=== PATIENT | female | born 1995 | race Caucasian/White ===

== ENCOUNTER 2016-06-12 22:12 | Emergency (ER) | payer OTHER ==
[2016-06-13 01:03] LABS: BASOPHIL % 0.1 % (0-2); PLATELET COUNT 232 x10^3mcL (130-400); RED CELL DISTRIBUTION WIDTH 13.9 % (11.5-14.5)
[2016-06-13 01:17] LABS: CALCIUM 8.8 mg/dL (8.5-10.1); CARBON DIOXIDE 24.8 mmol/L (21-32); CHLORIDE SERUM 104 mmol/L (98-107); CREATININE SERUM 0.6 mg/dL (0.6-1.0); GFR1 > 60 mL/min; GLUCOSE SERUM 126 mg/dL (74-106); POTASSIUM SERUM 3.7 mmol/L (3.5-5.1); SODIUM SERUM 139 mmol/L (136-145)
[2016-06-13 01:19] LABS: ALKALINE PHOSPHATASE 66 U/L (46-116); ALT/SGPT 45 U/L (14-59); AST/SGOT 31 U/L (15-37); BILIRUBIN TOTAL 0.2 mg/dL (0.20-1.00); LIPASE 84 IU/L (73-393); TOTAL PROTEIN, SERUM 7.1 g/dL (6.4-8.2)
[2016-06-13 01:20] LABS: ALBUMIN 3.2 g/dL (3.4-5.0)
[2016-06-13 04:12] VITALS: BP 128/50
== END 2016-06-13 04:12 | disposition home or self-care (01) ==
LOC: ED 22:12
PROVIDERS: Specialist
DX: O26.612 Liver and biliary tract disorders in pregnancy, second trimester (principal); K83.8 Other specified diseases of biliary tract; D72.829 Elevated white blood cell count, unspecified; K80.50 Calculus of bile duct without cholangitis or cholecystitis without obstruction; Z3A.20 20 weeks gestation of pregnancy
CPT/HCPCS: J2270; J2765; Q0092

== ENCOUNTER 2017-12-09 20:42 | Emergency (ER) | payer OTHER ==
[~2017-12-09] VITALS: Ht 160 cm; Wt 103.0 kg
[2017-12-09 20:43] VITALS: Ht 160 cm; Wt 103.0 kg
[2017-12-10 00:34] LABS: BASOPHIL % 0.3 % (0-2); PLATELET COUNT 280 x10^3mcL (130-400); RED CELL DISTRIBUTION WIDTH 14.1 % (11.5-14.5)
[2017-12-10 00:52] LABS: CALCIUM 9.3 mg/dL (8.5-10.1); CARBON DIOXIDE 22.3 mmol/L (21-32); CHLORIDE SERUM 107 mmol/L (98-107); CREATININE SERUM 0.7 mg/dL (0.6-1.0); GFR1 > 60 mL/min; GLUCOSE SERUM 112 mg/dL (74-106); SODIUM SERUM 142 mmol/L (136-145)
[2017-12-10 00:53] LABS: ALBUMIN 3.6 g/dL (3.4-5.0); ALKALINE PHOSPHATASE 135 U/L (46-116); ALT/SGPT 116 U/L (14-59); AST/SGOT 285 U/L (15-37); BILIRUBIN TOTAL 0.72 mg/dL (0.20-1.00); LIPASE 115 IU/L (73-393); TOTAL PROTEIN, SERUM 8.2 g/dL (6.4-8.2)
[2017-12-10 02:40] LABS: UA SPECIFIC GRAVITY 1.025 (1.005-1.035); microscopic required? YES; urine erythrocyte NEGATIVE (NEGATIVE)
[2017-12-10 03:32] VITALS: BP 111/65
== END 2017-12-10 03:32 | disposition home or self-care (01) ==
LOC: ED 20:42
PROVIDERS: Emergency Medicine
DX: K80.50 Calculus of bile duct without cholangitis or cholecystitis without obstruction (principal); N39.0 Urinary tract infection, site not specified
CPT/HCPCS: J1885; J2405; J3010; Q0092

== ENCOUNTER 2017-12-10 07:50 | Inpatient (IN) | payer OTHER ==
[~2017-12-10] VITALS: Ht 160 cm; Wt 103.1 kg
[2017-12-10 08:09] VITALS: Ht 160 cm; Wt 103.1 kg
[2017-12-10 08:46] LABS: BASOPHIL % 0.4 % (0-2); PLATELET COUNT 268 x10^3mcL (130-400); RED CELL DISTRIBUTION WIDTH 14.4 % (11.5-14.5)
[2017-12-10 09:31] LABS: CALCIUM 8.9 mg/dL (8.5-10.1); CARBON DIOXIDE 25.5 mmol/L (21-32); CHLORIDE SERUM 105 mmol/L (98-107); CREATININE SERUM 0.7 mg/dL (0.6-1.0); GFR1 > 60 mL/min; GLUCOSE SERUM 106 mg/dL (74-106); POTASSIUM SERUM 3.8 mmol/L (3.5-5.1); SODIUM SERUM 140 mmol/L (136-145)
[2017-12-10 09:45] LABS: ALBUMIN 3.5 g/dL (3.4-5.0); ALKALINE PHOSPHATASE 157 U/L (46-116); ALT/SGPT 399 U/L (14-59); AST/SGOT 740 U/L (15-37); BILIRUBIN TOTAL 1.4 mg/dL (0.20-1.00); LIPASE 157 IU/L (73-393); TOTAL PROTEIN, SERUM 7.8 g/dL (6.4-8.2)
[2017-12-10 10:05] LABS: UA SPECIFIC GRAVITY 1.015 (1.005-1.035); microscopic required? YES; urine erythrocyte NEGATIVE (NEGATIVE)
[2017-12-10 11:36] VITALS: BP 114/73
[2017-12-10 17:02] VITALS: BP 100/63
[2017-12-10 21:09] VITALS: BP 114/73
[2017-12-11 06:01] VITALS: BP 126/77
[2017-12-11 06:13] LABS: BASOPHIL % 0.1 % (0-2); PLATELET COUNT 225 x10^3mcL (130-400); RED CELL DISTRIBUTION WIDTH 14.5 % (11.5-14.5)
[2017-12-11 06:38] LABS: ALKALINE PHOSPHATASE 193 U/L (46-116); ALT/SGPT 349 U/L (14-59); AST/SGOT 260 U/L (15-37); BILIRUBIN DIRECT 1.11 mg/dL (0.0-0.2); BILIRUBIN TOTAL 1.84 mg/dL (0.20-1.00); CALCIUM 8.5 mg/dL (8.5-10.1); CARBON DIOXIDE 24.2 mmol/L (21-32); CHLORIDE SERUM 109 mmol/L (98-107); CREATININE SERUM 0.9 mg/dL (0.6-1.0); GFR1 > 60 mL/min; GLUCOSE SERUM 99 mg/dL (74-106); POTASSIUM SERUM 3.6 mmol/L (3.5-5.1); SODIUM SERUM 144 mmol/L (136-145); TOTAL PROTEIN, SERUM 7.2 g/dL (6.4-8.2)
[2017-12-11 06:52] LABS: ALBUMIN 3.1 g/dL (3.4-5.0)
[2017-12-11 09:13] VITALS: BP 102/62
[2017-12-11 11:07] LABS: LIPASE 11724 IU/L (73-393)
[2017-12-11 13:41] VITALS: BP 104/57
[2017-12-11 16:28] VITALS: BP 96/59
[2017-12-11 20:16] VITALS: BP 112/53
[2017-12-12 05:30] VITALS: BP 104/64
[2017-12-12 06:20] LABS: ALKALINE PHOSPHATASE 155 U/L (46-116); ALT/SGPT 204 U/L (14-59); AST/SGOT 68 U/L (15-37); BILIRUBIN TOTAL 0.53 mg/dL (0.20-1.00); CALCIUM 8.7 mg/dL (8.5-10.1); CARBON DIOXIDE 25.5 mmol/L (21-32); CHLORIDE SERUM 107 mmol/L (98-107); CREATININE SERUM 0.7 mg/dL (0.6-1.0); GFR1 > 60 mL/min; GLUCOSE SERUM 84 mg/dL (74-106); LIPASE 1030 IU/L (73-393); POTASSIUM SERUM 3.1 mmol/L (3.5-5.1); SODIUM SERUM 141 mmol/L (136-145); TOTAL PROTEIN, SERUM 7.1 g/dL (6.4-8.2)
[2017-12-12 06:22] LABS: ALBUMIN 2.9 g/dL (3.4-5.0)
[2017-12-12 06:40] LABS: BASOPHIL % 0.4 % (0-2); PLATELET COUNT 199 x10^3mcL (130-400)
[2017-12-12 07:01] LABS: RED CELL DISTRIBUTION WIDTH 14.8 % (11.5-14.5)
[2017-12-12 08:41] VITALS: BP 99/50
== END 2017-12-12 15:04 | disposition left against medical advice (07) ==
LOC: ED 07:50 → DU 10:16 → MU 10:16
PROVIDERS: Emergency Medicine; Internal Medicine
PROC: 0DJ08ZZ Inspection of Upper Intestinal Tract, Via Natural or Artificial Opening Endoscopic (ICD-10-PCS; 2017-12-11)
PROC: 0FC98ZZ Extirpation of Matter from Common Bile Duct, Via Natural or Artificial Opening Endoscopic (ICD-10-PCS; principal; 2017-12-11 11:45)
PROC: BF101ZZ Fluoroscopy of Bile Ducts using Low Osmolar Contrast (ICD-10-PCS; 2017-12-11 11:45)
DX: K80.30 Calculus of bile duct with cholangitis, unspecified, without obstruction (principal); K85.10 Biliary acute pancreatitis without necrosis or infection; E66.9 Obesity, unspecified; Z53.29 Procedure and treatment not carried out because of patient's decision for other reasons
CPT/HCPCS: 43262; C1769; J1610; J1885; J2250; J2270; J2405; J2543; J3010; J3490; J7030; J7120; Q9967

== ENCOUNTER 2018-01-19 16:05 | Emergency (ER) | payer SELFPAY ==
[~2018-01-19] VITALS: Ht 160 cm; Wt 103.4 kg
[2018-01-19 16:23] VITALS: Ht 160 cm; Wt 103.4 kg
[2018-01-19 18:33] LABS: BASOPHIL % 0.2 % (0-2); PLATELET COUNT 306 x10^3mcL (130-400)
[2018-01-19 18:35] LABS: CALCIUM 8.4 mg/dL (8.5-10.1); CARBON DIOXIDE 24.8 mmol/L (21-32); CHLORIDE SERUM 104 mmol/L (98-107); CREATININE SERUM 0.7 mg/dL (0.6-1.0); GFR1 > 60 mL/min; GLUCOSE SERUM 92 mg/dL (74-106); SODIUM SERUM 134 mmol/L (136-145)
[2018-01-19 18:37] LABS: RED CELL DISTRIBUTION WIDTH 14.6 % (11.5-14.5)
[2018-01-19 18:51] LABS: ALBUMIN 3.5 g/dL (3.4-5.0); ALKALINE PHOSPHATASE 128 U/L (46-116); ALT/SGPT 89 U/L (14-59); AST/SGOT 132 U/L (15-37); BILIRUBIN TOTAL 0.27 mg/dL (0.20-1.00); LIPASE 129 IU/L (73-393)
[2018-01-19 20:11] VITALS: BP 116/64
== END 2018-01-19 20:11 | disposition home or self-care (01) ==
LOC: ED 16:05
PROVIDERS: Emergency Medicine
DX: K80.20 Calculus of gallbladder without cholecystitis without obstruction (principal); F41.9 Anxiety disorder, unspecified
CPT/HCPCS: 36415; Q0092

== ENCOUNTER 2019-01-10 03:56 | Emergency (ER) | payer SELFPAY ==
[~2019-01-10] VITALS: Ht 160 cm; Wt 106.6 kg
[2019-01-10 04:06] VITALS: Ht 160 cm; Wt 106.6 kg
[2019-01-10 07:23] LABS: BASOPHIL % 0.2 % (0-2); PLATELET COUNT 233 x10^3mcL (130-400)
[2019-01-10 07:25] LABS: microscopic required? NO
[2019-01-10 07:29] LABS: CALCIUM 8.3 mg/dL (8.5-10.1); CARBON DIOXIDE 21.2 mmol/L (21-32); CHLORIDE SERUM 108 mmol/L (98-107); CREATININE SERUM 0.7 mg/dL (0.6-1.0); GFR1 > 60 mL/min; GLUCOSE SERUM 109 mg/dL (74-106); POTASSIUM SERUM 3.8 mmol/L (3.5-5.1); SODIUM SERUM 140 mmol/L (136-145)
[2019-01-10 07:33] LABS: ALKALINE PHOSPHATASE 76 U/L (46-116); ALT/SGPT 9 U/L (14-59); AST/SGOT 9 U/L (15-37); BILIRUBIN TOTAL 0.1 mg/dL (0.20-1.00); LIPASE 65 IU/L (73-393)
[2019-01-10 07:34] LABS: ALBUMIN 2.9 g/dL (3.4-5.0)
[2019-01-10 07:43] LABS: UA SPECIFIC GRAVITY 1.025 (1.005-1.035); urine erythrocyte NEGATIVE (NEGATIVE)
[2019-01-10 09:02] VITALS: BP 114/62
== END 2019-01-10 09:02 | disposition home or self-care (01) ==
LOC: ED 03:56
PROVIDERS: Emergency Medicine
DX: O99.612 Diseases of the digestive system complicating pregnancy, second trimester (principal); Z3A.21 21 weeks gestation of pregnancy
CPT/HCPCS: J2765; J3010